=== PATIENT | male | born 1945 | race Caucasian/White ===

== ENCOUNTER 2021-12-29 12:08 | Day surgery (SDC) | payer MEDICARE, BC ==
[~2021-12-29] VITALS: Ht 172.7 cm; Wt 79.3 kg
[2021-12-29] VITALS (10 sets, daily range): BP systolic 124–156; BP diastolic 70–83
[2021-12-29] MEDS ORDERED: normal saline 1,000 ML IV SCH (13:05)
[2021-12-29] MEDS ORDERED: diphenhydrAMINE 25mg capsule PO PRN (13:05)
[2021-12-29] MEDS ORDERED: LORazepam 0.5 MG tablet PO PRN (13:05)
[2021-12-29] MEDS ORDERED: ASPI-1475 PO (13:42)
[2021-12-29] MEDS ORDERED: OLME40TA18 PO (13:42)
[2021-12-29] MEDS ORDERED: METO-395 PO (13:42)
[2021-12-29] MEDS ORDERED: NITR0.4T48 (13:42)
[2021-12-29] MEDS ORDERED: METH-798 PO (13:42)
[2021-12-29] MEDS ORDERED: nitroGLYCERIN-Tridil 50MG/D5W 250 ML IV ONE (13:46)
[2021-12-29] MEDS ORDERED: midazolam 1 mg/ML 2ml injection ONE ×2 (13:46→14:25)
[2021-12-29] MEDS ORDERED: fentaNYL/PF 50MCG/1 ML 2ML syringe ONE (13:46)
[2021-12-29] MEDS ORDERED: verapamil 2.5 mg/ml inj IV ONE (13:46)
[2021-12-29] MEDS ORDERED: LIDOcaine 1% (10mg/ml) 2ml vial ONE (13:47)
[2021-12-29] MEDS ORDERED: heparin 1,000unit/ml 10ml vial 10 ML ONE (13:47)
[2021-12-29] MEDS ORDERED: OXYC1TAB17 PO (13:50)
[2021-12-29] MEDS ORDERED: FISH1CAP15 PO (13:50)
[2021-12-29] MEDS ORDERED: PRAV40TA3 PO (13:50)
[2021-12-29] MEDS ORDERED: MULT-1085 PO (13:50)
[2021-12-29] MEDS ORDERED: iohexol 350MG/ML 100ml bottle IV ONE (13:50)
[2021-12-29] MEDS ORDERED: MOME45CR3 (13:50)
[2021-12-29] MEDS ORDERED: OMEP20CA15 PO (13:51)
--- NOTE | 2021-12-29 15:00 | NUR ---
Pt sitting up in bed eating sandwich and drinking water without problems.
[2021-12-29] MEDS ORDERED: HYDROcodone/acetaminophen 5mg/325mg tablet PO PRN (15:15)
[2021-12-29] MEDS ORDERED: proCHLORperazine 10 MG/2 ml inj IV PRN (15:15)
[2021-12-29] MEDS ORDERED: HYDROcodone/acetaminophen 10/325mg tab PO PRN (15:15)
== END 2021-12-29 17:40 | disposition home or self-care (01) ==
LOC: SSTAY O 12:08
PROVIDERS: ATTEND Student in an Organized Health Care Education/Training Program
DX: R94.39 Abnormal result of other cardiovascular function study (principal); I25.10 Atherosclerotic heart disease of native coronary artery without angina pectoris; I10 Essential (primary) hypertension; E78.5 Hyperlipidemia, unspecified; Z79.899 Other long term (current) drug therapy; Z98.890 Other specified postprocedural states; Z88.8 Allergy status to other drugs, medicaments and biological substances
CPT/HCPCS: 93005; 93458; 99152; C1769; C1894; J1644; J2250; J3010; J3490; J7030; Q0163; Q9967; 99153; A4620; A5120; A6258; A6402